=== PATIENT | female | born 1950 | race Caucasian/White ===

== ENCOUNTER → 2020-01-25 10:07 | Outpatient (CLI) | payer MEDICARE, OTHER, SELFPAY ==
--- NOTE | ~2020-01-25 | DEXA_ITS ---
Bone Density Report Name: Jane Jonas Age: 70 Sex: Female Ethnicity: White Date of : 1950 Indication: postmenopausal osteoporosis; monitoring treatment; prior fracture; Referring Provider: BenjaSenia Study: Bone densitometry was performed. Exam Date: January 25, 2020 Accession number: [id number] Bone Density: Region BMD T-score Z-score Classification AP Spine (L1-L4) 0.731 -2.9 -0.8 Osteoporosis Femoral Neck (Left) 0.563 -2.6 -0.8 Osteoporosis Total Hip (Left) 0.710 -1.9 -0.4 Osteopenia Femoral Neck (Right) 0.585 -2.4 -0.6 Osteopenia Total Hip (Right) 0.733 -1.7 -0.2 Osteopenia Total Hip Mean 0.722 -1.8 -0.3 Osteopenia World Health Organization criteria for BMD impression classify patients as: Normal (T-score at or above -1.0), Osteopenia (T-score between -1.0 and -2.5), or Osteoporosis (T-score at or below -2.5). 10-year Fracture Risk: FRAX not reported because: Some T-score for Spine Total or Hip Total or Femoral Neck at or below -2.5 Treated for osteoporosis Previous Exams: Region Exam Age BMD T-score BMD Change BMD Change Date g/cm2 vs Baseline vs Previous AP Spine(L1-L4) 01/25/2020 70 0.731 -2.9 -0.026* -0.026* 11/01/2017 67 0.757 -2.6 Total Hip(Left) 01/25/2020 70 0.710 -1.9 0.005 0.005 11/01/2017 67 0.705 -1.9 Total Hip(Right) 01/25/2020 70 0.733 -1.7 -0.020 -0.020 11/01/2017 67 0.753 -1.5 *Denotes significance at 95% confidence level, LSC for AP Spine = 0.022 g/cm2, LSC for Total Hip = 0.027 g/cm2 Clinical Information Provided by Patient: Has had a low trauma fracture Is being treated for osteoporosis Has used the following medications: Fosamax (i.e. alendronate), Vitamin D, Fosamax last used 8 mo. ago Patient maximum height was 62.5 Menopause Age: 53 No regular weight bearing exercise Does not regularly consume dairy products Drinks caffeinated beverages Onset of menses at age 11 Number of children 1 Impression: The patient has established osteoporosis, based on the Total Spine T-score and the existence of a prior fracture. The patient has risk factors, including: previous fracture. The BMD for the AP Spine(L1-L4) decreased, changing by -0.026 since the last DXA exam. Discussion: SIGNIFICANT BONE LOSS OBSERVED. Adherence to therapy (including calcium and vitamin D intake) should be assessed. If compliance is not a factor, review management and ex
== END ==
PROVIDERS: PCP Family Medicine Adolescent Medicine; Visit Provider Internal Medicine Endocrinology, Diabetes & Metabolism
DX: M81.0 Age-related osteoporosis without current pathological fracture (principal); M85.852 Other specified disorders of bone density and structure, left thigh; M85.851 Other specified disorders of bone density and structure, right thigh
CPT/HCPCS: 77080

== ENCOUNTER → 2020-01-25 10:13 | Outpatient (CLI) | payer MEDICARE, OTHER, SELFPAY ==
--- NOTE | ~2020-01-25 | MM_ITS ---
EXAMINATION: MM screening [facility] BI w jackie HISTORY: Screening mammogram TECHNIQUE: Craniocaudal and mediolateral oblique 3-D tomosynthesis images were obtained and synthetic 2-D images were generated. CAD analysis was submitted and interpreted. COMPARISON: 11/01/2017, 12/07/2015, 10/04/2014 BREAST PARENCHYMAL COMPOSITION: There are scattered areas of fibroglandular density. FINDINGS: There is no evidence of suspicious mass, calcification, or architectural distortion to sugg est malignancy in either breast. There has been no suspicious interval change. IMPRESSION: 1. No mammographic evidence of malignancy. 2. Recommend routine screening mammography in one year. BI-RADS Category 1: Negative Reviewed, dictated and finalized at location A.
== END ==
PROVIDERS: PCP Family Medicine Adolescent Medicine; Visit Provider Family Medicine Adolescent Medicine
DX: Z12.31 Encounter for screening mammogram for malignant neoplasm of breast (principal)
CPT/HCPCS: 77063; 77067

== ENCOUNTER → 2021-09-22 13:10 | Outpatient (CLI) | payer MEDICARE, OTHER, SELFPAY ==
--- NOTE | ~2021-09-22 | MM_ITS ---
EXAMINATION: MM screening [facility] BI w jackie HISTORY: Screening mammogram TECHNIQUE: Craniocaudal and mediolateral oblique 3-D tomosynthesis images were obtained and synthetic 2-D images were generated. CAD analysis was submitted and interpreted. COMPARISON: No prior mammogram is available for comparison at this institution. BREAST PARENCHYMAL COMPOSITION: There are scattered areas of fibroglandular density. FINDINGS: There is no evidence of suspicious mass, calcification, or architectural distortion to sugg est malignancy in either breast. There has been no suspicious interval change. IMPRESSION: 1. No mammographic evidence of malignancy. 2. Recommend routine screening mammography in one year. BI-RADS Category 1: Negative Reviewed, dictated and finalized at location A.
== END ==
PROVIDERS: PCP Family Medicine Adolescent Medicine; Visit Provider Physician Assistant
DX: Z12.31 Encounter for screening mammogram for malignant neoplasm of breast (principal)
CPT/HCPCS: 77063; 77067

== ENCOUNTER → 2022-01-26 10:25 | Outpatient (CLI) | payer MEDICARE, OTHER, SELFPAY ==
--- NOTE | ~2022-01-26 | DEXA_ITS ---
Bone Density Report Name: PIGN ACOSTA Age: 72 Sex: Female Ethnicity: White Date of : 1950 Indication: postmenopausal osteoporosis; monitoring treatment; prior fracture; asthma or emphysema; Referring Provider: FERNANDO RAVI Study: Bone densitometry was performed. Exam Date: January 26, 2022 Accession number: [id number] Bone Density: Region BMD T-score Z-score Classification AP Spine (L1-L4) 0.754 -2.7 -0.4 Osteoporosis Femoral Neck (Left) 0.558 -2.6 -0.7 Osteoporosis Total Hip (Left) 0.711 -1.9 -0.3 Osteopenia Femoral Neck (Right) 0.599 -2.3 -0.3 Osteopenia Total Hip (Right) 0.725 -1.8 -0.2 Osteopenia Total Hip Mean 0.718 -1.9 -0.3 Osteopenia World Health Organization criteria for BMD impression classify patients as: Normal (T-score at or above -1.0), Osteopenia (T-score between -1.0 and -2.5), or Osteoporosis (T-score at or below -2.5). 10-year Fracture Risk: FRAX not reported because: Some T-score for Spine Total or Hip Total or Femoral Neck at or below -2.5 Treated for osteoporosis Previous Exams: Region Exam Age BMD T-score BMD Change BMD Change Date g/cm2 vs Baseline vs Previous AP Spine(L1-L4) 01/26/2022 72 0.754 -2.7 -0.003 0.023* 01/25/2020 70 0.731 -2.9 -0.026* -0.026* 11/01/2017 67 0.757 -2.6 Total Hip(Left) 01/26/2022 72 0.711 -1.9 0.005 0.000 01/25/2020 70 0.710 -1.9 0.005 0.005 11/01/2017 67 0.705 -1.9 Total Hip(Right) 01/26/2022 72 0.725 -1.8 -0.028* -0.008 01/25/2020 70 0.733 -1.7 -0.020 -0.020 11/01/2017 67 0.753 -1.5 *Denotes significance at 95% confidence level, LSC for AP Spine = 0.022 g/cm2, LSC for Total Hip = 0.027 g/cm2 Clinical Information Provided by Patient: Has had a low trauma fracture Is being treated for osteoporosis Has used the following medications: Fosamax (i.e. alendronate), Vitamin D, Calcium Has the following medical conditions: Asthma or Emphysema Patient maximum height was 62.5 Menopause Age: 53 Drinks caffeinated beverages Onset of menses at age 11 Number of children 1 Impression: The patient has established osteoporosis, based on the Total Spine T-score and the existence of a prior fracture. The patient has risk factors, including: previous fracture. No significant bone loss was observed. Discussion: PATIENT UNDER TREATMENT WITH NO SIGNIFI
== END ==
PROVIDERS: PCP Family Medicine Adolescent Medicine; Visit Provider Family Medicine Adolescent Medicine
DX: Z78.0 Asymptomatic menopausal state (principal); M81.0 Age-related osteoporosis without current pathological fracture; M85.89 Other specified disorders of bone density and structure, multiple sites
CPT/HCPCS: 77080

== ENCOUNTER 2023-08-27 14:25 | Outpatient (CLI) | payer MEDICARE, SELFPAY ==
--- NOTE | ~2023-08-27 | XR_ITS ---
EXAM: XR hand LT min 3V, XR hand RT min 3V DATE: 08/27/2023 15:00 HISTORY: Hand pain . COMPARISON: None available. FINDINGS: Decreased mineralization. Status post bilateral trapezium resection. No acute fracture or dislocation. Old right ulnar styloid fracture. Scattered arthritic changes typical of osteoarthritis in the wrist and fingers, moderate in the right second DIP joint, left third DIP joint with lateral s ubluxation, bilateral first interphalangeal joints, and bilateral triscaphe joints. No lytic or blast ic lesions. No erosion or periosteal change. IMPRESSION: Osteopenia. Moderate polyarticular osteoarthritis. Reviewed, dictated and finalized at location K. IMPRESSION: Osteopenia. Moderate polyarticular osteoarthritis.
== END 2023-08-27 14:26 ==
PROVIDERS: PCP Family Medicine Adolescent Medicine; Visit Provider Family Medicine Adolescent Medicine
DX: M19.042 Primary osteoarthritis, left hand (principal); M19.041 Primary osteoarthritis, right hand; M85.88 Other specified disorders of bone density and structure, other site
CPT/HCPCS: 73130

== ENCOUNTER 2023-08-30 07:04 | Outpatient (CLI) | payer MEDICARE, SELFPAY ==
--- NOTE | ~2023-08-30 | XR_ITS ---
Left Forearm AP and lateral views of the left forearm were performed. Clinical History: Mass at the proximal left ulna Findings: No acute fracture or dislocation is seen. Possible old, healed fracture deformity of the di stal radius. Osseous alignment in anatomic. Joint spaces are preserved. Suspected soft tissue mass v ersus bulge along the olecranon at the proximal ulna, measuring approximately 3 cm in length. Impression: Possible soft tissue mass at the extensor aspect of the proximal forearm along the olecranon region. Correlate with physical exam. Consider ultrasound versus MR to further evaluate. Possible old, healed fracture deformity of the distal radius. Reviewed, dictated and finalized at location . Impression: Possible soft tissue mass at the extensor aspect of the proximal forearm along the olecranon region. Correlate with physical exam. Consider ultrasound versus MR to further evaluate. Possible old, healed fracture deformity of the distal radius.
== END 2023-08-30 07:05 ==
LOC: MICIMG 07:05
PROVIDERS: PCP Family Medicine Adolescent Medicine; Visit Provider Family Medicine Adolescent Medicine
DX: R22.32 Localized swelling, mass and lump, left upper limb (principal)
CPT/HCPCS: 73090

== ENCOUNTER 2023-09-24 13:21 | Outpatient (CLI) | payer MEDICARE, SELFPAY ==
--- NOTE | 2023-09-24 14:00 | NEURO_ITS ---
Impression: # Complains of discomfort in left forearm. # Normal Nerve Conduction Study. No Carpal Tunnel Syndrome or ulnar neuropathy. # Needle/EMG exam not requested. # Clinical correlation recommended. Nerve Conduction Studies Anti Sensory Summary Table Stim Site NR Peak (ms) P-T Amp (?V) Site1 Site2 Delta-P (ms) Dist (cm) Anibal (m/s) Left Median Anti Sensory (2-3nd Digit) Wrist 2.7 70.5 Wrist 2-3nd Digit 2.7 14.0 52 Wrist 2.6 73.6 Wrist 2-3nd Digit 2.7 14.0 52 Left Radial Anti Sensory (Base 1st Digit) Wrist 2.0 38.3 Wrist Base 1st Digit 2.0 0.0 Left Ulnar Anti Sensory (5th Digit) Wrist 2.8 60.3 Wrist 5th Digit 2.8 14.0 50 Motor Summary Table Stim Site NR Onset (ms) O-P Amp (mV) Site1 Site2 Delta-0 (ms) Dist (cm) Anibal (m/s) Left Median Motor (Abd Poll Brev) Wrist 2.5 4.4 Elbow Wrist 4.7 29.0 62 Elbow 7.2 3.3 Left Ulnar Motor (Abd Dig Minimi) Wrist 2.9 5.8 A Elbow Wrist 4.8 28.0 58 A Elbow 7.7 3.5 F Wave Studies NR F-Lat (ms) L-R F-Lat (ms) Left Median (Mrkrs) (Abd Poll Brev) 24.20 Left Ulnar (Mrkrs) (Abd Dig Min) 25.89 MTDD
== END 2023-09-24 13:22 | disposition home or self-care (01) ==
LOC: ANHNEURO 13:24
PROVIDERS: PCP Family Medicine Adolescent Medicine; Visit Provider Family Medicine Adolescent Medicine
DX: R20.2 Paresthesia of skin (principal)
CPT/HCPCS: 95909

== ENCOUNTER 2023-12-02 12:38 | Outpatient (CLI) | payer MEDICARE, SELFPAY ==
--- NOTE | ~2023-12-02 | XR_ITS ---
Left Knee Technique: AP, lateral, and sunrise views were obtained. Clinical History: Pain Findings: There is an acute, transverse, nondisplaced fracture the midportion of the patella. No othe r fracture or dislocation seen.. Joint spaces are preserved without degenerative or erosive change. S oft tissues are unremarkable. No joint effusion is seen. Impression: Transverse, acute, essentially nondisplaced fracture the midportion of the patella. Reviewed, dictated and finalized at location M. Impression: Transverse, acute, essentially nondisplaced fracture the midportion of the avila lla.
== END 2023-12-02 12:39 ==
LOC: MICIMG 12:42
PROVIDERS: Visit Provider Family Medicine Adolescent Medicine
DX: S82.035A Nondisplaced transverse fracture of left patella, initial encounter for closed fracture (principal); W19.XXXA Unspecified fall, initial encounter
CPT/HCPCS: 73562

== ENCOUNTER 2023-12-06 10:21 | Outpatient (CLI) | payer MEDICARE, SELFPAY ==
--- NOTE | ~2023-12-06 | MM_ITS ---
EXAMINATION: MM screening [facility] BI w jackie HISTORY: Screening TECHNIQUE: Craniocaudal and mediolateral oblique 3-D tomosynthesis images were obtained and synthetic 2-D images were generated. CAD analysis was submitted and interpreted. COMPARISON: Comparison to multiple prior studies sequentially, with oldest reviewed study dated 11/2014. BREAST PARENCHYMAL COMPOSITION: Not dense: There are scattered areas of fibroglandular density. FINDINGS: There is no evidence of suspicious mass, calcification, or architectural distortion to sugg est malignancy in either breast. There has been no suspicious interval change. IMPRESSION: 1. No mammographic evidence of malignancy. 2. Recommend routine screening mammography in one year. BI-RADS Category 1: Negative Reviewed, dictated and finalized at location B.
== END 2023-12-06 10:22 ==
LOC: MICIMG 10:21
PROVIDERS: PCP Family Medicine Adolescent Medicine; Visit Provider Family Medicine Adolescent Medicine
DX: Z12.31 Encounter for screening mammogram for malignant neoplasm of breast (principal)
CPT/HCPCS: 77063; 77067

== ENCOUNTER 2024-01-03 08:52 | Outpatient (CLI) | payer MEDICARE, SELFPAY ==
--- NOTE | ~2024-01-03 | XR_ITS ---
Left Knee Technique: AP, lateral, and sunrise views were obtained. Clinical History: Patellar fracture follow-up COMPARISON: 12/02/2023 Findings: Routine interval healing of transverse fracture of the inferior patella, with probable bony bridging across the fracture site.. Joint spaces are preserved without degenerative or erosive garcia e. Soft tissues are unremarkable. No joint effusion is seen. Impression: Routine interval healing of patellar fracture with probable bony bridging across the fracture site. Reviewed, dictated and finalized at location M. Impression: Routine interval healing of patellar fracture with probable bony bridging acros s the fracture site.
== END 2024-01-03 08:53 | disposition home or self-care (01) ==
PROVIDERS: PCP Family Medicine Adolescent Medicine; Visit Provider Family Medicine Adolescent Medicine
DX: S82.002D Unspecified fracture of left patella, subsequent encounter for closed fracture with routine healing (principal); X58.XXXD Exposure to other specified factors, subsequent encounter
CPT/HCPCS: 73562

== ENCOUNTER 2024-07-29 12:55 | Outpatient (CLI) | payer MEDICARE, SELFPAY ==
--- NOTE | ~2024-07-29 | CT_ITS ---
CT Scan of the Chest without Contrast: Clinical Indication: Lung cancer screening, nicotine dependence Technique: Contiguous sections were acquired throughout the chest without intravenous contrast. Dose reduction technique was used on this scan by utilizing automated exposure control and iterative recon struction technique. The dose-length product (DLP) was 35.99 mGy-cm. Findings: There is no evidence of any significant mediastinal, hilar or axillary lymphadenopathy. The mediastin al soft tissues appear normal. There is no evidence of pleural or pericardial effusion. The lungs are clear. No pulmonary nodules or infiltrates are noted. Moderate to advanced emphysema. Images through the upper abdomen reveal 2.5 cm left adrenal nodule, likely adenoma. Impression: Lung RADS 1: Negative. 12 month follow-up screening CT advised. Moderate to advanced emphysema. Reviewed, dictated and finalized at [facility]. Impression: Lung RADS 1: Negative. 12 month follow-up screening CT advised. Moderate to advanced emphysema.
== END 2024-07-29 12:56 | disposition home or self-care (01) ==
LOC: MICIMG 12:55
PROVIDERS: PCP Family Medicine Adolescent Medicine; Visit Provider Family Medicine
DX: Z12.2 Encounter for screening for malignant neoplasm of respiratory organs (principal); Z87.891 Personal history of nicotine dependence; J43.9 Emphysema, unspecified
CPT/HCPCS: 71271

== ENCOUNTER 2024-09-29 09:58 | Outpatient (CLI) | payer MEDICARE, SELFPAY ==
--- NOTE | ~2024-09-29 | DEXA_ITS ---
Bone Density Report Name: PING ACOSTA Age: 74 Sex: Female Ethnicity: White Date of : 1950 Indication: postmenopausal osteoporosis; height loss; Referring Provider: IVY DORSEY Study: Bone densitometry was performed. Exam Date: September 29, 2024 Accession number: [id number] Bone Density: Region BMD T-score Z-score Classification AP Spine(L1-L4) 0.759 -2.6 -0.2 Osteoporosis Femoral Neck (Left) 0.532 -2.9 -0.8 Osteoporosis Total Hip (Left) 0.638 -2.5 -0.7 Osteoporosis Femoral Neck (Right) 0.550 -2.7 -0.6 Osteoporosis Total Hip (Right) 0.728 -1.8 0.0 Osteopenia Total Hip Mean 0.683 -2.2 -0.4 Osteopenia World Health Organization criteria for BMD impression classify patients as: Normal (T-score at or above -1.0), Osteopenia (T-score between -1.0 and -2.5), or Osteoporosis (T-score at or below -2.5). 10-year Fracture Risk: FRAX not reported because: Some T-score for Spine Total or Hip Total or Femoral Neck at or below -2.5 Previous Exams: Region Exam Age BMD T-score BMD Change BMD Change Date g/cm2 vs Baseline vs Previous AP Spine (L1-L4) 09/29/2024 74 0.759 -2.6 0.003 (0.4%) 0.003 (0.4%) 07/26/2015 65 0.756 -2.6 Total Hip(Left) 09/29/2024 74 0.638 -2.5 -0.085 (-11.8% -0.085 (-11.8% 07/26/2015 65 0.724 -1.8 Total Hip(Right) 09/29/2024 74 0.728 -1.8 -0.008 (-1.1%) -0.008 (-1.1%) 07/26/2015 65 0.736 -1.7 *Denotes significance at 95% confidence level, LSC for AP Spine = 0.022 g/cm2, LSC for Total Hip = 0.027 g/cm2 Clinical Information Provided by Patient: Has used the following medications: Fosamax (i.e. alendronate), Vitamin D, Calcium Patient maximum height was 63 Drinks caffeinated beverages Onset of menses at age 11 Number of children 1 Impression: The patient has osteoporosis, based on the Left Femoral Neck T-score. The BMD for the Total Hip(Left) decreased, changing by -11.8% since the last DXA exam. Discussion: INCREASED RISK OF FRACTURE. BONE DENSITY IS UNDESIRABLY LOW AT ONE OR MORE SKELETAL SITES, CONSISTENT WITH POSTMENOPAUSAL OSTEOPOROSIS. This patient's lowest T-score meets the World Health Organization's (WHO) criteria for osteoporosis at one or more sites (T-score -2.5 or below). In untreated patients, the risk of osteoporotic fracture increases approximately two-fold for each 1.0 SD decrease in T-score. Low bone density is not the only risk factor for fracture; also consider factors such as patient's age, frailty or poor health, risk of falling, risk of injury, previous osteoporotic fracture, family history of osteoporosis, cigarette smoking, low body weight, etc. Not everyone with low bone mineral density has osteoporosis; osteomalacia and other metabolic bone disorders should also be considered. Patients who have osteoporosis should be evaluated for specific diseases and conditions (secondary causes) that may cause or contribute to bone loss. The [place] [employer] (AACE) and National Osteoporosis Foundation (NOF) recommend pharmacologic intervention for all postmenopausal women whose T-score is in this range. The patient should follow a healthful lifestyle (good nutrition with adequate calcium and vitamin D, and appropriate weight-bearing exercise). Follow-Up: Consider a repeat BMD and Vertebral Fracture Assessment (VFA) exam in 2 years or sooner if medically necessary, to reassess this patient's status. Reported by: PRIMITIVO on 09/29/2024 10:32:00 AM. Reviewed, dictated and finalized at location A.
--- OUTSIDE RECORDS SUMMARY | 2024-09-29 10:22 | XMS_ITS | Encounter Summary ---
Author Organization [facility] Address [address] [place] [place] [address] Care Team Providers Care Merchant Mill Utility Worker Name Role Phone Villa Garcia MD Primary Care Provider Encounter Details Date Type Department Care Team (Late st Contact Info) Description 03/07/2020 Lab Requisition [facility] [address] [place] [id number] Susan Lopez MD [address] [place] [address] Social History Tobacco Use Types Packs/Day Years Used Date Smoking Tobacco: Former Cigarettes Q uit: 10/09/2012 Smokeless Tobacco: Never Alcohol Use Standard Drinks/Week Comments Yes 1.7 (1 standard drink = 0.6 oz p ure alcohol) Comments Unknown Sex and Gender Information Value Date Recorded Sex Assigned at Not on file Legal Sex Female 5:58 PM POMOLOGIST Gender Identity Not on file Sexual Orientation Not on file documented as of this encounter Plan of Treatment Not on file documented as of this encounter Procedures Procedure Name Priority Date/Time Associated Diagnosis Comments DERMATOPATHOLOGY Routine 03/07/2020 12:0 0 AM POMOLOGIST documented in this encounter Results * DERMATOPATHOLOGY (03/07/2020 12:00 AM POMOLOGIST) Case Report Dermatopathology Report Case: [id number] Authorizing Provider: Susan Lopez MD Collected: 03/07/2020 12:00 AM Ordering Location: [facility] Received: 03/07/2020 11:01 AM Pathologist: Terell Calero MD Specimen: Skin, back 0 4:47 PM [facility] DERMATOPATHOLOGY LABORATORY Final Diagnosis Specimen A. SKIN, back: EPIDERMOID CYST, FRAGMENTS OF (L72.0) 0 4:47 PM [facility] DERMATOPATHOLOGY LABORATORY at 1647 POMOLOGIST Clinical History R/O cyst, irritated. 0 4:47 PM [facility] DERMATOPATHOLOGY LABOR[facility] Gross Description Specimen A: Received is one formalin filled container labeled with the patient's name and designated back. The specimen consists of an excision submitted in 6 pieces measuring [id number], [id number], [id number], [id number], [id number], & [id number]. The specimens are serially sectioned with training representative sections submitted in 1 cassette. Jar 1. 0 4:47 PM [facility] DERMATOPATHOLOGY LABORATORY Microscopic Description Specimen A. SKIN, back: Sections show multiple portions of epithelium with a granular layer. There are also portions of keratin, predominantly in a basket-woven configuration. 0 4:47 PM [facility] DERMATOPATHOLOGY LABORATORY Disclaimer An external and internal positive and negative controls are appropriate for the histochemical, immunohistochemical and immunofluorescence stain(s) in this case (if any), except where stated explicitly. The performance characteristics of the stain(s) cited in this report were developed and its performance characteristic determined by the Dermatopathology Laboratory at [facility], directed by Dr. Shashank Calero. These tests need not be, and therefore are not, approved by the [place] Food and Drug Administration. The tests are used for clinical purposes. Billing Codes Specimen Charges Stain Charges 53449 1 0 4:47 PM [facility] DERMATOPATHOLOGY LABORATORY Embedded Images 0 4:47 PM [facility] DERMATOPATHOLOGY LABORATORY Pathology/Cytolog y TISSUE SPECIMEN FROM SKIN / Unknown 03/07/2020 03/07/2020 11:01 AM POMOLOGIST us Susan Lopez MD LAB - PATHOLOGY/CYTOLOGY OR DERABLES Final Result DERMATOPATHOLOGY LABORATORY [facility] - Department of Dermatology [address] [phone] documented in this encounter Visit Diagnoses Not on filedocumented in this encounter Care Teams Merchant Mill Utility Worker Relationship Specialty Start Date End Date Villa Garcia MD [address] [place] [id number] PCP - General 10/10/15 documented as of this encounter
--- OUTSIDE RECORDS SUMMARY | 2024-09-29 10:22 | XMS_ITS | Clinical Summary ---
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 Gender Identity Not on file Sexual Orientation Not on file Plan of Treatment Health Maintenance Due Date Last Done Comments DEXA Bone Density 1950 Hepatitis C Virus (HCV) Screening 1950 TdaP Immunization 1950 Colonoscopy 1995 Colorectal Cancer Screening 1995 Cologuard 01/18/2000 Immunochemical Fecal Occult Blood 01/18/2000 Mammogram 01/18/2000 Zoster Immunization (1 of 2) 01/18/2000 Influenza Immunization (#1) 2023 11/0 07/2020, 01/26/2020, 02/27/2019, Additional history exists SARS-COV-2 Immunization ( season) 2023 01/27/2021, 06/27/2020, 06/06/2020 Respiratory Syncytial Virus (RSV) Immunization (Adult) (1 - 1-dose 75+ series) 2025 Pneumococcal Immunization (50+ years) Completed 04/11/2016, 03/20/2015 Pneumococcal Immunization Combined Discontinued 04/11/2016, 03/20/2015 Hepatitis B Immunization Aged Out No longer eligible based on patient's age to complete this topic Meningococcal Immunization (ACWY) Aged Out No longer eligible based on patient's age to complete this topic Rotavirus Immunization Aged Out No lo nger eligible based on patient's age to complete this topic
--- OUTSIDE RECORDS SUMMARY | 2024-09-29 10:22 | XMS_ITS | Referral Summary ---
Author Organization [facility] [address] Address [address] [place] [address] Care Team Providers Care Funeral Director'S Assistant Name Role Phone Edilson Khan MD Primary Care Prov ider Allergies No known active allergies Medications calcium carbonate-vitamin D3 (CALCIUM 600 WITH VITAMIN D3) 600 mg(1,500mg) -400 unit capsule 2 daily 0 0 4 Active cholecalciferol (VITAMIN D3) 5,000 unit tablet take one daily 0 0 6 Active tiotropium-olodat Jules (Stiolto Respimat) 2.5-2.5 mcg/actuation inhaler Inhale as needed Active hydroCHLOROthiazi de (HYDRODIURIL) 12.5 mg tablet Take 1 tablet (12.5 mg total) by mouth daily 90 tablet 3 1 Active alendronate (Fosamax) 70 mg tabletIndications :Other osteoporosis without current pathological fracture Take 1 tablet (70 mg total) by mouth every 7 days Take in the morning with a full glass of water, on an empty stomach, and do not take anything else by mouth or lie down for the next 30 min. 12 tablet 1 1 Active Active Problems Problem Noted Date Diagnosed Date Hypercalciuria 06/16/2020 Assessment & Plan (06/16/2020 11:02 AM HEATING OPERATORS ENGINEER): Restart hctz Recheck urine calcium in 2 m Other osteoporosis without current pathological fracture 06/11/2017 Assessment & Plan (06/16/2020 11:03 AM HEATING OPERATORS ENGINEER): With worsening bone density Stat Forteo rx send Might have to appeal or apply for pt's assistance with Soni Ca and vit D intake discussed Weight bearing exercise Fall precautions. Assessment & Plan (06/18/2019 4:48 PM HEATING OPERATORS ENGINEER): Continue Fosamax Due for bone density in around October 2019 Weight-bearing exercise Calcium and vitamin-D intake discussed Fall precaution Assessment & Plan (06/19/2018 1:49 PM HEATING OPERATORS ENGINEER): Continue Fosamax Ca and vit D intake discussed Assessment & Plan (06/11/2017 10:10 AM HEATING OPERATORS ENGINEER): Fall precaution discussed Daily weight bearing exercise Adequate ca and vit D intake. Continue Fosamax Schedule DEXA Vitamin D deficiency 06/11/2017 Assessment & Plan (06/16/2020 11:03 AM HEATING OPERATORS ENGINEER): Check 25 OH vit D Adjust dose of vit D accordingly Assessment & Plan (06/18/2019 4:48 PM HEATING OPERATORS ENGINEER): Check 25 OH vit D Adjust dose of Ergocalciferol accordingly Assessment & Plan (06/19/2018 1:50 PM HEATING OPERATORS ENGINEER): Check 25 oh vit D Adjust dose if indicated Assessment & Plan (06/11/2017 10:08 AM HEATING OPERATORS ENGINEER): Check 25 [place] vit D Adjust dose of vitamin D Dose accordingly Stress incontinence in female 06/14/2009 Social History Tobacco Use Types Packs/Day Years Used Date Smoking Tobacco: Former Smokeless Tobacco: Never Alcohol Use Standard Drinks/Week Comments Yes 0 (1 standard drink = 0.6 oz pur e alcohol) PHQ-2 Answer Date Recorded PHQ-2 Total Score (If total score is 3 or more points, staff should administer the PHQ-9) 0 06/16/2020 Comments Unknown Sex and Gender Information Value Date Recorded Sex Assigned at Not on file Legal Sex Female 2:51 AM HEATING OPERATORS ENGINEER Gender Identity Not on file Sexual Orientation Not on file Last Filed Vital Signs Vital Sign Reading Time Taken Comments Blood Pressure 98/60 06/16/2020 10:21 AM HEATING OPERATORS ENGINEER Pulse 69 06/16/2020 10:21 AM HEATING OPERATORS ENGINEER Temperature - - Respiratory Rate 12 06/16/2020 10:21 AM HEATING OPERATORS ENGINEER Oxygen Saturation - - Inhaled Oxygen Concentration - - Weight 58.1 kg (128 lb) 06/16/2020 10:21 AM HEATING OPERATORS ENGINEER Height 158.8 cm (5' 2.52) 06/16/2020 10:21 AM C Body Mass Index 23.02 06/16/2020 10:21 AM HEATING OPERATORS ENGINEER Plan of Treatment Not on file Insurance MEDICARE [facility] Care Teams Funeral Director'S Assistant Relationship Specialty Start Date End Date Edilson Khan MD [address] [place] [address] PCP - General 07/27/16
--- OUTSIDE RECORDS SUMMARY | 2024-09-29 10:22 | XMS_ITS | Clinical Summary ---
Author Organization [facility] Address [address] [facility] [place] [address] Care Team Providers Care Quickbooks Bookkeeper Name Role Phone Villa Garcia MD Primary Care Provider [phone] Source Comments [facility],non-owned Affiliates and Associated Physician Practices is amultiple site organization consisting of ambulatory clinics and hospital sitesin [place], [place], [place] and [place]. This disclosure is being madepursuant to the Care Everywhere program and may not contain all information available regarding this patient. Last updated 18.[facility] Social History Tobacco Use Types Packs/Day Years Used Date Smoking Tobacco: Former Cigarettes Q uit: 10/09/2012 Smokeless Tobacco: Never Alcohol Use Standard Drinks/Week Comments Yes 1.7 (1 standard drink = 0.6 oz p ure alcohol) Comments Unknown Sex and Gender Information Value Date Recorded Sex Assigned at Not on file Legal Sex Female 5:58 PM BEATER BOSS Gender Identity Not on file Sexual Orientation Not on file Last Filed Vital Signs Vital Sign Reading Time Taken Comments Blood Pressure 104/57 10/10/2015 11:55 PM CDT Pulse 87 10/10/2015 11:55 PM CDT Temperature 36.7 C (98.1 F) 10/10/2015 11:55 PM CDT Respiratory Rate 16 10/10/2015 11:55 PM CDT Oxygen Saturation - - Inhaled Oxygen Concentration - - Weight 59 kg (130 lb) 10/10/2015 11:55 PM CDT Height 160 cm (5' 3) 10/10/2015 11:55 PM CDT Body Mass Index 23.03 10/10/2015 11:55 PM CDT Plan of Treatment Health Maintenance Due Date Last Done Comments BONE DENSITY TESTING 1950 COLOGUARD (AGES 45-75) - COL ON CA SCREENING 1950 COLON MONITORING 1950 COLONOSCOPY - COLON CA SCREENING 1950 CT COLONOGRAPHY - COLON CA SCREENING 1950 Colorectal Cancer Screening 1950 FIT - COLON CA SCREENING 1950 FLEX SIG - COLON CA SCREENING 1950 LIPID TESTING 1950 MAMMOGRAM 1950 HEPATITIS C SCREENING 01/13/1968 DTAP/TDAP/TD VACCINES (1 - Tdap) 1969 PNEUMOCOCCAL VACCINE 50+ (1 of 1 - PCV) 01/18/2000 ZOSTER VACCINE (1 of 2) 01/18/2000 COVID-19 VACCINE ( - 2023-2 5 season) 2023 DEPRESSION SCREENING 04/29/2024 INFLUENZA VACCINE (Season Ended) 2024 Respiratory Syncytial Virus (RSV) Vaccine Pt: or over 60 yrs (1 - 1-dose 75+ series) 2025 HEPATITIS B VACCINE Aged Out No longe r eligible based on patient's age to complete this topic HIB VACCINE Aged Out No longer eligi ble based on patient's age to complete this topic HPV VACCINE Aged Out No longer eligi ble based on patient's age to complete this topic MENINGOCOCCAL (Group B) VACC INE SHARED DECISION-MAKING Aged Out No longer eligibl e based on patient's age to complete this topic MENINGOCOCCAL GROUPS A/C/Y/W VACCINE Aged Out No longer eligible b ased on patient's age to complete this topic Insurance MEDICARE UPREHS Care Teams Quickbooks Bookkeeper Relationship Specialty Start Date End Date Villa Garcia MD [address] [place] [phone] PCP - General 10/10/15
--- OUTSIDE RECORDS SUMMARY | 2024-09-29 10:22 | XMS_ITS | Encounter Summary ---
Author Organization [facility] Address [address] [facility] [place] [address] Care Team Providers Care Weigher Production Name Role Phone Villa Garcia MD Primary Care Provider [phone] Encounter Details Date Type Department Care Team (Late st Contact Info) Description 02/22/2020 Lab Requisition [facility] DermPath Lab [address] [facility], [place] [phone] Susan Lopez MD [address] [facility] 3 DE[place] [address] Social History Tobacco Use Types Packs/Day Years Used Date Smoking Tobacco: Former Cigarettes Q uit: 10/09/2012 Smokeless Tobacco: Never Alcohol Use Standard Drinks/Week Comments Yes 1.7 (1 standard drink = 0.6 oz p ure alcohol) Comments Unknown Sex and Gender Information Value Date Recorded Sex Assigned at Not on file Legal Sex Female 5:58 PM BEARING MAKER Gender Identity Not on file Sexual Orientation Not on file documented as of this encounter Plan of Treatment Not on file documented as of this encounter Procedures Procedure Name Priority Date/Time Associated Diagnosis Comments DERMATOPATHOLOGY Routine 02/22/2020 12:0 0 AM CDT documented in this encounter Results * DERMATOPATHOLOGY (02/22/2020 12:00 AM CDT) Case Report Dermatopathology Report Case: [id number] Authorizing Provider: Susan Lopez MD Collected: 02/22/2020 12:00 AM Ordering Location: [facility] DermPath Lab Received: 02/22/2020 10:47 AM Pathologist: Terell Calero MD Specimen: Skin, right forearm 0 1:25 PM CDT DERMATOPATHOLOGY LABORATORY Final Diagnosis Specimen A. SKIN, right forearm: MATURE ADIPOSE TISSUE CONSISTENT WITH LIPOMA (D17.20) 0 1:25 PM CDT DERMATOPATHOLOGY LABORATORY at 1325 CDT Clinical History Lipoma vs other, growing, irritated. 0 1:25 PM CDT DERMATOPATHOLOGY LABORATORY Gross Description Specimen A: Received is one formalin filled container labeled with the patient's name and designated right forearm. The specimen consists of a [id number] excision of soft yellow tissue. The specimen is serially sectioned and a security representative section is submitted in cassette 1. Jar 1. 0 1:25 PM CDT DERMATOPATHOLOGY LABORATORY Microscopic Description Specimen A. SKIN, right forearm: There are typical adipocytes with minimal fibrous trabeculae. 0 1:25 PM CDT DERMATOPATHOLOGY LABORATORY Disclaimer An external and internal positive and negative controls are appropriate for the histochemical, immunohistochemical and immunofluorescence stain(s) in this case (if any), except where stated explicitly. The performance characteristics of the stain(s) cited in this report were developed and its performance characteristic determined by the Dermatopathology Laboratory at [facility], directed by Dr. Shashank Calero. These tests need not be, and therefore are not, approved by the [place] Food and Drug Administration. The tests are used for clinical purposes. Billing Codes Specimen Charges Stain Charges 59548 1 0 1:25 PM CDT DERMATOPATHOLOGY LABORATORY Embedded Images 0 1:25 PM CDT DERMATOPATHOLOGY LABORATORY Pathology/Cytolog y TISSUE SPECIMEN FROM SKIN / Unknown 02/22/2020 02/22/2020 10:47 AM CDT Susan Lopez MD LAB - PATHOLOGY/CYTOLOGY OR DERABLES Final Result DERMATOPATHOLOGY LABORATORY [facility] - Department of Dermatology [address], [address] [phone] documented in this encounter Visit Diagnoses Not on filedocumented in this encounter Care Teams Weigher Production Relationship Specialty Start Date End Date Villa Garcia MD [address] [place] [phone] PCP - General 10/10/15 documented as of this encounter
--- OUTSIDE RECORDS SUMMARY | 2024-09-29 10:22 | XMS_ITS | Encounter Summary ---
Author Organization [facility] Address [address] [place] [address] Care Team Providers Care Tube Closing Machine Operator Name Role Phone Villa Garcia MD Primary Care Provider Encounter Details Date Type Department Care Team (Late st Contact Info) Description 02/01/2020 Lab Requisition [facility] DermPath Lab [address] [facility] [place] [phone] Susan Lopez MD [address] [facility] 3 [place] [address] Social History Tobacco Use Types Packs/Day Years Used Date Smoking Tobacco: Former Cigarettes Q uit: 10/09/2012 Smokeless Tobacco: Never Alcohol Use Standard Drinks/Week Comments Yes 1.7 (1 standard drink = 0.6 oz p ure alcohol) Comments Unknown Sex and Gender Information Value Date Recorded Sex Assigned at Not on file Legal Sex Female 5:58 PM MANAGER BEHAVIOR Gender Identity Not on file Sexual Orientation Not on file documented as of this encounter Plan of Treatment Not on file documented as of this encounter Procedures Procedure Name Priority Date/Time Associated Diagnosis Comments DERMATOPATHOLOGY Routine 02/01/2020 12:0 0 AM CDT documented in this encounter Results * DERMATOPATHOLOGY (02/01/2020 12:00 AM CDT) Case Report Dermatopathology Report Case: [id number] Authorizing Provider: Susan Lopez MD Collected: 02/01/2020 12:00 AM Ordering Location: [facility] DermPath Lab Received: 02/01/2020 11:02 AM Pathologist: Terell Calero MD Specimen: Skin, left post thigh 0 3:13 PM CDT DERMATOPATHOLOGY LABORATORY Final Diagnosis Specimen A. SKIN, left post thigh: MATURE ADIPOSE TISSUE CONSISTENT WITH LIPOMA (D17.20) 0 3:13 PM CDT DERMATOPATHOLOGY LABORATORY at 1513 CDT Clinical History R/O lipoma, growing, painful. 0 3:13 PM CDT DERMATOPATHOLOGY LABORATORY Gross Description Specimen A: Received is one formalin filled container labeled with the patient's name and designated left post thigh. The specimen consists of an excision submitted in 4 pieces measuring [id number], [id number], [id number], & [id number]. The specimen is serially sectioned and with customer response representative sections submitted in 1 cassette. Jar 1. 0 3:13 PM CDT DERMATOPATHOLOGY LABORATORY Microscopic Description Specimen A. SKIN, left post thigh: There are typical adipocytes with minimal fibrous trabeculae. 0 3:13 PM CDT DERMATOPATHOLOGY LABORATORY Disclaimer An external and internal positive and negative controls are appropriate for the histochemical, immunohistochemical and immunofluorescence stain(s) in this case (if any), except where stated explicitly. The performance characteristics of the stain(s) cited in this report were developed and its performance characteristic determined by the Dermatopathology Laboratory at [facility], directed by Dr. Shashank Calero. These tests need not be, and therefore are not, approved by the [place] Food and Drug Administration. The tests are used for clinical purposes. Billing Codes Specimen Charges Stain Charges 78252 1 0 3:13 PM CDT DERMATOPATHOLOGY LABORATORY Embedded Images 0 3:13 PM CDT DERMATOPATHOLOGY LABORATORY Pathology/Cytolog y TISSUE SPECIMEN FROM SKIN / Unknown 02/01/2020 02/01/2020 11:02 AM CDT us Susan Lopez MD LAB - PATHOLOGY/CYTOLOGY OR DERABLES Final Result DERMATOPATHOLOGY LABORATORY [facility] - Department of Dermatology [address] 3[address] Floor [place], [place] [id number] [place] [address] documented in this encounter Visit Diagnoses Not on filedocumented in this encounter Care Teams Tube Closing Machine Operator Relationship Specialty Start Date End Date Villa Garcia MD [address] [place] [phone] PCP - General 10/10/15 documented as of this encounter
--- OUTSIDE RECORDS SUMMARY | 2024-09-29 10:22 | XMS_ITS | Continuity of Care Document ---
Author Organization [facility] Address [address] [place] [address] Dr Ro[address] [place] [phone] Phone Care Team Providers Care Manager Battery Name Role Phone Rodrick JACINTO FACS, Terry Unavailable Unavailab le Allergies, Adverse Reactions, Alerts Substance Reaction Status Criticality No Known Allergies Active No Inform ation Medications Medication Instructions Dosage Effective Dates (start - stop) Status Comments ketorolac 0.5 % eye drops instill 1 drop by ophthalmic route 3 times every day into left eye 1 drop - Active Vitamin D3 125 mcg (5,000 unit) tablet take 1 tablet by oral route every evening 1 tablet - Active Calcium 350 mg ORAL TABLET - Active Procedures Procedure Date No Charge Refraction Office/outpatient Visit, Est After Cataract Laser Surgery No Charge Refraction Office/outpatient Visit, Est Remove Cataract, Insert Lens,Comanaged M IOLMaster-Professional Remove Cataract, Insert Lens,Comanaged M [employer]OL[employer]Professional SCODI, Retina No Charge Refraction No Charge Optomap Fundus Photos 024 Office/outpatient Visit, [facility] IOLMaster-Technical No Charge Orbscan Advance Directives Directive Yes / No Effective Date File Name No Information Encounters Encounter Description Practice Location Reason(s) For Visit Diagnoses Date Provider Providers Copied on Encounter [facility], [address] [place] [address] [address], [place], [place], [id number], [place] tel:[phone] [place] No Information Oct-0 2-202 4 [place] Terry. [address] [place] [address] [employer] [facility], [address], [place], [place], [address], [place]. tel:[phone] Office/outpa tient Visit, Est [facility], [address] [place] [address] [address], [place], [place], [id number], [place] tel:[phone] SEC [facility] Follow up visit (chief complaint) Cystoid macular edema of left eyePresence of intraocular lens Oct-0 1-202 4 Rodrick Terry. [address] [place] [address], [address], [place], [place], [id number], [place]. tel:[phone] Referring Provider: Hardik Munguia OD, [address] [place], [address]. tel:[phone] [place], [facility] [address] [place] [address] [address], [place], [place], [address], [place] tel:[phone] [facility] YAG Evaluation (chief complaint) Other secondary cataract, left eye Sep-0 3-202 4 [place] Terry. [address] [place] [address] [employer] [facility], [address], [place], [place], [address], [place]. tel:[phone] Referring Provider: Hardik Munguia OD, [address] [place], [address]. tel:[phone] [facility], [address] [place] [address] [address], [place], [place], [address], [place] tel:[phone] [facility] No Information May-2 1-202 4 Rodrick Terry. [address] [place] [address] [employer] [facility], [address], [place], [place], [address], [place]. tel:[phone] Referring Provider: Hardik Munguia OD, 1 [place], [address]. tel:[phone] [facility], [address] [place], [place] [address]crest [employer] [address], [place], [place], [address], tel:[phone] [place] No Information May-2 0-202 4 [place] Terry. [address] [place], [place] [address], [address], [place], [place], [address], . tel:[phone] Referring Provider: Hardik Munguia OD, 1 [facility], [place], [address]. tel:[phone] [facility], [address] [place], [place] [address] [facility], [place], [place], [address], tel:[phone] [facility] No Information May-0 8-202 4 Rodrick Terry. [facility] [employer], [address], [place], [place], [address], . tel:[phone] Referring Provider: Hardik Munguia OD, 1 [facility], [place], [address]. tel:[phone] [facility], [facility] [employer] [facility] [address], [place], [place], [address], tel:[phone] [place] No Information May-0 6-202 4 [place] Terry. [address] [place], [place] [address], [address], [place], [place], [address], [place]. tel:[phone] Referring Provider: Hardik Munguia OD, 1 [facility], [place], [address]. tel:[phone] Office/outpa tient Visit, [facility], [address] [place], [place] [address] [address], [place], [place], [address], tel:[phone] [place] Cataract evaluation (chief complaint) Combined forms of age-related cataract, bilateralPVD (posterior vitreous detachment), both eyesChoriore tinal scar of left eye Jun- 4 Rodrick Stewart. [address] [employer], [address], [place], [place], [address], [place]. tel:[phone] Referring Provider: Hardik Munguia OD, 1 [facility], [place], [address]. tel:[phone] [facility] Eye [facility], [address] [employer] [address], [place], [place], [address], [place] tel:[phone] SEC [place] Professional No Information 4 Eduar Torres. [address] [employer], [address], [place], [place], [address], [place]. tel:[phone] Family History Family Member Type Diagnosis Age At Onset No Information Payers Payer name Insurance type Covered libertarian ID Cely perez(s) [facility] Mdcr Adv CI [id number] Social History Type Description Quantity Date Captured Comments Alcohol Use Details Unknown Caffeine Use Details Unknown Tobacco Use Status No Information Smoking Status No Information Sex Female Chief Complaint And Reason For Visit No Information Reason For Referral Reason For Referral No Information History Of Present Illness Encounter Date Complaint History Of Prese nt Illness Follow up visit The 74 year old patient presents for evaluation of Follow up visit in the left eye. Pt states that the laser did not seem to help OS at all. Pt states that ever since Cataract surgery they have noticed that OS feels swollen all the time and pt states that it seems like there's a glob over OS constantly. Pt states it seems like no matter what they do the glob in constantly there. YAG Evaluation The 73 year old patient presents for evaluation of YAG Evaluation in the right eye and left eye. Pt states that ever since Cataract Surgery they have noticed a thumb like blurry over OS and pt states that they have time reading small print, pt has a hard time writing checks or filling out forms, and pt states that headlights at night and bright lights during the day bother them as well. Cataract evaluation The 73 year old patient presents for evaluation of Cataract evaluation in the right eye and left eye. Pt. referred by Dr. Munguia for Cataracts ou. Pt. has noticed over the past year her vision has gotten more blurred. Pt. states she has trouble reading small print, seeing road signs at a distance. Pt. also has trouble with night driving especially due to glare from headlights. Pt. uses AFT's ou qd. Functional Status Date Functional Assessmen t No Information Instructions Date Instruction Additional Infor asmuel Impression/Plan Follow-up with referring eye doc tor. Related to Other secondary cataract, left eye Impression/Plan Related to Other secondary cataract, left eye Impression/Plan Assessments Type Assessment Date No Information Patient Care Teams Name Effective Dates (start - stop) Status Members No Information
--- OUTSIDE RECORDS SUMMARY | 2024-09-29 10:22 | XMS_ITS | Clinical Summary ---
Author Organization [facility] [address] [place] Professional [employer] Address [address] [place] [address] Care Team Providers Care Credit Counselor Name Role Phone Edilson Khan MD Primary [...] 06/16/2020 Assessment & Plan (06/16/2020 11:02 AM STAFF SUBMARINE WARFARE OFFICER): Restart hctz Recheck urine calcium in 2 m Other osteoporosis without current pathological fracture 06/11/2017 Assessment & Plan (06/16/2020 11:03 AM STAFF SUBMARINE WARFARE OFFICER): With worsening bone density Stat Forteo rx send Might have to appeal or apply for pt's assistance with Soni Ca and vit D intake discussed Weight bearing exercise Fall precautions. Assessment & Plan (06/18/2019 4:48 PM STAFF SUBMARINE WARFARE OFFICER): Continue Fosamax Due for bone density in around October 2019 Weight-bearing exercise Calcium and vitamin-D intake discussed Fall precaution Assessment & Plan (06/19/2018 1:49 PM STAFF SUBMARINE WARFARE OFFICER): Continue Fosamax Ca and vit D intake discussed Assessment & Plan (06/11/2017 10:10 AM STAFF SUBMARINE WARFARE OFFICER): Fall precaution discussed Daily weight bearing exercise Adequate ca and vit D intake. Continue Fosamax Schedule DEXA Vitamin D deficiency 06/11/2017 Assessment & Plan (06/16/2020 11:03 AM STAFF SUBMARINE WARFARE OFFICER): Check 25 OH vit D Adjust dose of vit D accordingly Assessment & Plan (06/18/2019 4:48 PM STAFF SUBMARINE WARFARE OFFICER): Check 25 OH vit D Adjust dose of Ergocalciferol accordingly Assessment & Plan (06/19/2018 1:50 PM STAFF SUBMARINE WARFARE OFFICER): Check 25 oh vit D Adjust dose if indicated Assessment & Plan (06/11/2017 10:08 AM STAFF SUBMARINE WARFARE OFFICER): Check 25 OH vit D Adjust dose of vitamin D Dose accordingly Stress incontinence in female 06/14/2009 Medical History Medical History Date Comments Hx Other Medical wrist fracture, bilateral. Vitamin D deficiency Family History Medical History Relation Name Comments Other Other No family histo ry of Osteoporosis; Relation Name Status Comments Other Social History Tobacco Use Types Packs/Day Years [...] on file Legal Sex Female 2:51 AM STAFF SUBMARINE WARFARE OFFICER Gender Identity Not on file Sexual Orientation Not on file Obstetrics History Last Filed Vital Signs Vital Sign Reading Time Taken Comments Blood Pressure 98/60 06/16/2020 10:21 AM STAFF SUBMARINE WARFARE OFFICER Pulse 69 06/16/2020 10:21 AM STAFF SUBMARINE WARFARE OFFICER Temperature - - Respiratory Rate 12 06/16/2020 10:21 AM STAFF SUBMARINE WARFARE OFFICER Oxygen Saturation - - Inhaled Oxygen Concentration - - Weight 58.1 kg (128 lb) 06/16/2020 10:21 AM STAFF SUBMARINE WARFARE OFFICER Height 158.8 cm (5' 2.52) 06/16/2020 10:[address] Body Mass Index 23.02 06/16/2020 10:21 AM STAFF SUBMARINE WARFARE OFFICER Plan of Treatment Not on file Insurance [place]IC[place] [address] [place] [address] Care Teams Credit Counselor Relationship Specialty Start Date End Date Edilson Khan MD [address] [place] [address] PCP - General 07/27/16
--- OUTSIDE RECORDS SUMMARY | 2024-09-29 10:22 | XMS_ITS | Patient Health Record ---
Author Organization [facility] Address [id number] [place] [address] [address] [place] [address] Care Team Providers Care Bridge Maintainer Name Role Phone Antony JACINTO, Stephane Unavailable Unavailable Reason For Referral No Information Plan Of Treatment No Information Insurance Providers Payer Name Payer Address Payer Phone Subscriber Number Group Number Insured Name Patient Relationship to Insured Coverage Start Date Coverage End Date [employer] [address] [address] [place] [address] [id number] Jane Jonas Self - patient is the insured 5 [facility] [employer] [address] [place] [address] [id number] Jane Jonas Self - patient is the insured 5
== END 2024-09-29 09:59 | disposition home or self-care (01) ==
PROVIDERS: PCP Family Medicine Adolescent Medicine; Visit Provider Family Medicine Adolescent Medicine
DX: M81.0 Age-related osteoporosis without current pathological fracture (principal); M85.89 Other specified disorders of bone density and structure, multiple sites
CPT/HCPCS: 77080

== ENCOUNTER 2025-02-17 09:30 | Outpatient (CLI) | payer MEDICARE, SELFPAY ==
--- NOTE | ~2025-02-17 | MM_ITS ---
EXAMINATION: MM screening jeremy BI w jackie HISTORY: Screening TECHNIQUE: Craniocaudal and mediolateral oblique 3-D tomosynthesis images were obtained and synthetic 2-D images were generated. CAD analysis was submitted and interpreted. COMPARISON: Comparison to multiple prior studies sequentially, with oldest reviewed study dated , 11/01/2017 BREAST PARENCHYMAL COMPOSITION: There are scattered areas of fibroglandular density. FINDINGS: There is no evidence of suspicious mass, calcification, or architectural distortion to suggest malignancy in either breast. IMPRESSION: 1. No mammographic evidence of malignancy. 2. Recommend routine screening mammography in one year. BI-RADS Category 1: Negative Reviewed, dictated and finalized at location B.
== END 2025-02-17 09:31 | disposition home or self-care (01) ==
LOC: MICIMG 09:31
PROVIDERS: PCP Family Medicine Adolescent Medicine; Visit Provider Family Medicine Adolescent Medicine
DX: Z12.31 Encounter for screening mammogram for malignant neoplasm of breast (principal)
CPT/HCPCS: 77063; 77067